=== PATIENT | male | born 1990 | race Two or more races ===

== ENCOUNTER → 2016-09-02 | Emergency (ER) | payer BC ==
[~2016-09-02] VITALS: Ht 167.6 cm; Wt 63.0 kg
[~2016-09-02] MED LIST: BENADRYL25 MG ORAL; NKM
[2016-09-02 23:23] VITALS: BP 121/56
[2016-09-02 23:45] VITALS: BP 121/56
--- NOTE | 2016-09-03 03:31 | Emergency Room Report ---
History of Present Illness General Chief Complaint: Allergies Source: Patient Present Illness HPI Patient is a 26-year-old male presented after having increased skin rash for several days. Patient gradual onset of symptoms. Patient reported having multiple areas with urticaria. He had been taking [id number] hydrocortisone cream with some improvement. Patient denied any recent changes in the skin care products. Patient any fever. He had not been ill recently. Allergies: Coded Allergies: No Known Allergies (Unverified , 09/02/16) Patient History Past Medical History: see triage record Reviewed Nursing Documentation: PMH: Agreed, PSxH: Agreed Nursing Documentation-PMH Past Medical History: No Stated History Review of Systems All Other Systems: negative except mentioned in HPI Physical Exam Vital Signs Date Time Temp Pulse Resp B/P Pulse Ox O2 Delivery O2 Flow Rate FiO2 09/02/16 23:07 98.1 60 16 121/56 100 Room Air General Appearance: well appearing, no apparent distress, alert, GCS 15 Head: normocephalic, atraumatic ENT: hearing grossly normal, normal voice Neck: full range of motion, supple Respiratory: no respiratory distress, speaking full sentences Cardiovascular #1: normal inspection, normal peripheral pulses Musculoskeletal: normal inspection, back normal, no calf tenderness Neurologic: normal inspection, alert, oriented x3, responsive, technology support analyst III-XII nml as tested, normal gait Psychiatric: mood/affect normal Skin: other - urticaria, to extremities waistline. Medical Decision Making Diagnostic Impression: Primary Impression: Urticaria ER Course Patient presented for skin rash. Differential diagnosis included was not limited to Bella-Misha syndrome, urticaria, erythema multiforme, contact dermatitis. Patient's benign exam and does not appear to require any further imaging or laboratory testing at this time. Patient given prescription for Benadryl.The patient is advised to follow up with primary care doctor in 2-3 days. Patient is advised to return if any worsening condition or if any changes in status that are concerning. Last Vital Signs Date Time Temp Pulse Resp B/P Pulse Ox O2 Delivery O2 Flow Rate FiO2 09/02/16 23:45 98.1 60 16 121/56 100 Room Air Status: unchanged Disposition: HOME, SELF-CARE Condition: Stable Scripts Diphenhydramine Hcl* (BENADRYL*) 25 Mg Capsule 25 MG ORAL Q6H Y for Itching, #30 CAP Prov: Ben Osmna 09/02/16 Referrals: NOT CHOSEN IPA/,REFERRING (PCP) Patient Instructions: Ben Barrientos Sep 03, 2016 03:31
== END | disposition home or self-care (01) ==
LOC: EMR 23:31
DX: L50.9 Urticaria, unspecified (principal)
CPT/HCPCS: 99283